=== PATIENT | female | born 2005 | race Two or more races ===

== ENCOUNTER 2024-05-29 09:35 | Emergency (ER) | payer MEDICAID, SELFPAY ==
[2024-05-29 10:12] VITALS: BP 109/72; PULSE 66; RESP 16; TEMP 36.8; O2SAT 100; BMI 26.3
--- NOTE | 2024-05-29 10:52 | PD.EDRME ---
Rapid Medical Screening Exam RME Arrival date/time: 05/29/24 09:35 19-year-old female with right upper quadrant abdominal pain x 3 days. I have greeted and performed a focused initial assessment of this patient. Initial appropriate labs ordered at this time. A comprehensive ED assessment and evaluation of the patient and analysis of all test and completion of medical decision making process will be conducted by additional ED provider. Chief Complaint: Abdominal Pain Time Seen by Provider: 05/29/24 10:25 Vital signs: Vital Signs Temperature 98.2 F 05/29/24 10:12 Pulse Rate 66 05/29/24 10:12 Respiratory Rate 16 05/29/24 10:12 Blood Pressure 109/72 05/29/24 10:12 Pulse Oximetry (%) 100 05/29/24 10:12 Oxygen Delivery Method Room Air 05/29/24 10:12
[2024-05-29 11:14] LABS: Collection Type, Urine Clean Catch
[2024-05-29 11:17] LABS: Basophils % (Auto) 1 % (0-2.5); Eosinophils # (Auto) 0.2 Thou/mm3 (0.0-0.5); Eosinophils % (Auto) 3 % (0-10); Hematocrit 39.4 % (36.0-46.0); Hemoglobin 13.6 g/dL (12.0-16.0); Immature Granulocytes % (Auto) 0 % (0-0); Immature Granulocytes Auto 0.02 Thou/mm3 (0.00-0.00); Lymphocytes # (Auto) 3.3 Thou/mm3 (1.0-4.8); Lymphocytes % (Auto) 42 % (10-50); Mean Corpuscular HGB Conc 34.5 g/dl (31.0-37.0); Mean Corpuscular Hemoglobin 29.4 pg (25.0-35.0); Mean Corpuscular Volume 85 fL (80-100); Monocytes # (Auto) 0.4 Thou/mm3 (0.0-0.8); Monocytes % (Auto) 5 % (0-12); Neutrophils # (Auto) 3.9 Thou/mm3 (1.8-7.7); Neutrophils % (Auto) 50 % (37-80); Nucleated Red Blood Cell % 0 /100 WBC (0); Platelet Count 310 Thou/mm3 (140-440); RDW Standard Deviation 40.1 fL (36.4-46.3); Red Blood Count 4.63 Miln/mm3 (4.00-5.20); White Blood Count 7.8 Thou/mm3 (4.5-11.0)
[2024-05-29 11:41] LABS: Alanine Aminotransferase 17 U/L (10-49); Albumin, Serum 4.7 gm/dL (3.5-5.0); Albumin/Globulin Ratio 1.8 (1.2-2.2); Alkaline Phosphatase 88 U/L (46-116); Anion Gap 7 (7-16); Aspartate Amino Transferase 15 U/L (0-34); BUN/Creatinine Ratio 13 Ratio (12-20); Bilirubin,Total 0.3 mg/dL (0.3-1.2); Blood Urea Nitrogen 8 mg/dL (9-23); Calcium 9.3 mg/dL (8.3-10.6); Calcium (Corrected) 9.3 mg/dL (8.5-10.1); Chloride 104 mMol/L (98-107); Creatinine (Component) 0.6 mg/dL (0.6-1.3); Estimated Creatinine Clearance 132.7 mL/min (>60); Globulin 2.6 gm/dL (2.3-3.5); Glucose 92 mg/dL (74-106); Lipase 35 U/L (12-53); Osmolality,Calculated 273 (275-295); Potassium 3.8 mMol/L (3.4-5.1); Sodium 138 mMol/L (136-145); Total Protein 7.3 gm/dL (5.7-8.2); eGFR > 60 See Note
[2024-05-29 11:42] LABS: Bilirubin,Urine Negative (Negative); Blood,Urine Negative (Negative); Color,Urine Yellow (Lt Yel-Yel); Glucose, Urine Negative (Negative); Ketones,Urine Negative (Negative); Leukocyte Esterase,Urine Positive (Negative); Nitrite,Urine Negative (Negative); Protein,Urine Trace (Neg - Trace); RBC,Urine 5 /hpf (0-3); Specific Gravity,Urine 1.026 (1.001-1.035); Squamous Epithelial Cell,Urine 41 /hpf (0-5); Urobilinogen,Urine Negative mg/dL (0.0-1.0); WBC,Urine 11 /hpf (0-5)
[2024-05-29 11:51] LABS: Clarity,Urine Hazy (Clear/Hazy)
--- NOTE | 2024-05-29 12:06 | XR_ITS ---
Examination: CT abdomen with intravenous contrast CT pelvis with intravenous contrast 2-D coronal reconstructions 2-D sagittal reconstructions Date and time of exam:May 29, 2024 1526 hours INDICATIONS: Onset left lower quadrant abdominal pain and tenderness today. CTDI: vol (mGy) 7.99 DLP: (mGycm) 428 Technique: Multiple axial sections of the abdomen and pelvis have been obtained. 64 slice high-resolution scanner used. 3 mm axial sections have been obtained, post intravenous injection 60 cc [id number] 2-D sagittal, coronal reconstructions obtained. Low dose protocols were performed. One or more of the following dose reduction techniques were used; automated exposure control, adjustment of the mA and/or KV according to patient size, use of iterative reconstruction technique. Findings: No focal liver or splenic lesions No gallstones No pancreatic or adrenal mass Abdominal aorta normal size No renal or ureteral calculi, no hydronephrosis Normal appendix No bowel obstruction or diverticulitis Anteverted uterus Mildly prominent left ovary 3.7 cm Urinary bladder intact Osseous structures intact IMPRESSION: No renal or ureteral calculi, no hydronephrosis Normal appendix No bowel obstruction diverticulitis or free air Mildly prominent left ovary, recommend pelvic sonography follow-up
--- NOTE | 2024-05-29 12:07 | EDNOTE_ITS ---
<Statement entered by Ayde Jasmine MD - 05/29/24 17:06> As co-signing physician, I was present and available for consult prn. I concur with the plan and care as documented by the midlevel provider. ED Abdominal Pain RME/HPI General Chief Complaint: Abdominal Pain Stated complaint: Abdominal pain since last night Time seen by provider: 05/29/24 10:25 Arrival date/time: 05/29/24 09:35 RME / HPI RME / HPI narrative: 19-year-old female patient came in for evaluation regarding left lower quadrant pain. Onset of symptoms since last night as worsening pain to the left lower quadrant, described as dull ache, severity moderate. Patient denies any fever denies any vomiting denies any nausea denies any diarrhea or constipation. Patient also denies any urinary frequency or dysuria. No medications taken prior travel Related Data Previous Rx's ?Medication ?Instructions ?Recorded ibuprofen 600 mg tablet 600 mg PO Q8H PRN pain #30 tabs 05/29/24 Allergies Allergy/AdvReac Type Severity Reaction Status Date / Time No Known Allergies Allergy Verified 03/10/24 15:35 Review of Systems Review of Systems Narrative Review of Systems: Review of system reviewed and within normal limits except mentioned in HPI ED Exam Narrative Physical exam: VITAL SIGNS: Reviewed. GENERAL APPEARANCE: Alert and interactive, follows commands, no acute distress, HEAD AND FACE: Non-traumatic. ENT: PERRL, pink conjunctivitis, eyelid no trauma, Mucous membrane moist. NECK: Supple, nontender, no nuchal rigidity. CHEST: No tenderness, no crepitus, no paradoxical movement, no retractions. LUNGS: Clear, well ventilated, symmetric, no rales, no wheezing, no ronchi, no stridor, good breath sounds bilaterally. HEART: Regular rate, regular rhythm, no murmur, no gallops. ABDOMEN: Soft, positive bowel sounds, nondistended, no guarding, left lower quadrant tenderness, no rebound, no masses, RECTAL: Deferred. GENITAL: Deferred. NEUROLOGICAL: Gross motor function intact sensory function intact, Appropriate for age. MUSCULOSKELETAL: low back nontender, full range of motion. EXTREMITIES: Nontender, full range of motion. SKIN: Color pink, dry, no rash, no lacerations, no abrasions, no contusions. LYMPHATICS: Deferred. Course Quality Measures none Orders Category Date Time Status CT Screening NOW Care 05/29/24 12:[address] abdomen pelvis w con Stat Exams 05/29/24 12:06 Completed CBC Stat Lab 05/29/24 11:01 Completed Comprehensive Metabolic Panel Stat Lab 05/29/24 11:01 Completed HCG Qualitative,Urine Stat Lab 05/29/24 11:00 Completed Lipase Stat Lab 05/29/24 11:01 Completed Urinalysis Stat Lab 05/29/24 11:00 Completed Vital Signs Vital signs: Vital Signs Temperature 98.2 F 05/29/24 10:12 Pulse Rate 66 05/29/24 10:12 Respiratory Rate 16 05/29/24 10:12 Blood Pressure 109/72 05/29/24 10:12 Pulse Oximetry (%) 100 05/29/24 10:12 Oxygen Delivery Method Room Air 05/29/24 10:12 Abdominal Pain MDM [facility] Narrative [facility] Narrative:: 19-year-old female patient came in for evaluation regarding left lower quadrant pain. Onset of symptoms since last night as worsening pain to the left lower quadrant, described as dull ache, severity moderate. Patient denies any fever denies any vomiting denies any nausea denies any diarrhea or constipation. Patient also denies any urinary frequency or dysuria. No medications taken prior to arrival. Patient's workup today all came back unremarkable, urinalysis is contaminated. CT scan of the abdomen/pelvis came back unremarkable. Results discussed with the patient. Prior to discharge patient told me that her abdominal pain is gone Patient data External records reviewed:: None Clinical information provided by:: patient Social determinants that could affect healthcare access:: none Patient has the following chronic illnesses:: None How is presenting disease/condition affected by chronic disease/condition?: no chronic disease Evaluation data The following diagnostics were reviewed and interpreted by me:: lab results and radiology exam(s) Lab and/or radiology exams considered but not ordered:: None Interpretation Summary: See aboveb in MDM Medications / Prescriptions Medications or Prescriptions considered but not ordered:: None Medication administrations:: None Consultations Consultation(s) initiated? (list below): No Diagnosis Differential diagnosis abdominal pain: abdominal pain, calculus of kidney, constipation and endometriosis Most likely diagnosis given after review of the tests above:: Abdominal pain Admission Indicated Admission indicated?: not indicated Admission Request Was there a request for admission?: No Disposition Plan Disposition Plan: Discharge Discharge Attestation Discharge Attestation: The patient was given an opportunity to ask questions and understood the discharge instructions. Discharge instructions specifically effects, indications for sooner follow up or return to the emergency department, and the expected course of current diagnosis. Patient condition: Stable Discharge Plan Plan Patient Disposition: HOME (Self Care) Disposition Comment: Stable Prescriptions/Referrals Prescriptions/Med Rec: New ibuprofen 600 mg tablet 600 mg PO Q8H PRN (Reason: pain) Qty: 30 0RF Referrals: No Primary/Family,Physician [Primary Care Provider] - In 1 week Problem List Clinical Impression: Abdominal pain Patient/Caregiver Discharge Instructions Discharge Activity: activity as tolerated Education Materials: Abdominal Pain Additional Instructions: Thank you for the opportunity for serving you today. You are stable for discharged . You are advised to: Follow-up with your PCP in 1 to 2 days Return to ED for worsening of symptoms Increase oral fluids Take medication as prescribed Print Language: Polish Stand Alone Forms: Loni Award Info., Patient Portal Info Letter EVELYN/ALEXSANDRA Supervising Physician EVELYN/ALEXSANDRA Supervising Physician: MD Kenroy
[2024-05-29 12:09] LABS: HCG Qualitative,Urine Negative
== END 2024-05-29 16:34 | disposition home or self-care (01) ==
PROVIDERS: Nurse Practitioner Primary Care; Emergency Provider Emergency Medicine
DX: R10.32 Left lower quadrant pain (principal)
CPT/HCPCS: 36415; 74177; 80053; 81001; 81025; 83690; 85025; 99285; A4649; Q9967

== ENCOUNTER 2024-10-21 14:14 | Emergency (ER) | payer MEDICAID, SELFPAY ==
[2024-10-21 14:25] VITALS: BP 122/90; PULSE 89; RESP 18; TEMP 36.9; O2SAT 99; BMI 25.7
--- NOTE | 2024-10-21 14:27 | PD.EDABDPN ---
ED Abdominal Pain RME/HPI General Chief Complaint: Back Pain/Injury Stated complaint: BACK PAIN THAT RADIATES TO GROIN Time seen by provider: 10/21/24 14:18 Arrival date/time: 10/21/24 14:14 This is a [id number]-ulr female came in emergency room due to abdominal pain patient's pain started 1 day associated with nausea vomiting pain and sharp and radiating to both lower abdomen denies any constipation diarrhea denies fever denies blood in the stool Related Data Previous Rx's ?Medication ?Instructions ?Recorded ibuprofen 600 mg tablet 600 mg PO Q8H PRN pain #30 tabs 05/29/24 cephalexin 500 mg capsule 500 mg PO QID 10 days #40 caps 10/21/24 ondansetron 4 mg disintegrating 4 mg PO Q8H PRN nausea and 10/21/24 tablet vomiting #20 tabs Allergies Allergy/AdvReac Type Severity Reaction Status Date / Time No Known Allergies Allergy Verified 10/21/24 14:15 Review of Systems Review of Systems Systems Reviewed: All systems reviewed, normal except as documented Constitutional Constitutional: Reports system reviewed and no additional complaints, except as documented, Denies anorexia, Denies body ache(s), Denies chills, Denies daytime sleepiness and Denies difficulty sleeping ENT Ears, Nose, Mouth, and Throat: Denies dysphagia Cardiovascular Cardiovascular: Reports system reviewed and no additional complaints, except as documented, Reports as per HPI, Denies chest pain and Denies dyspnea Respiratory Respiratory: Reports system reviewed and no additional complaints, except as documented, Reports as per HPI, Denies chest congestion, Denies cough and Denies dyspnea Gastrointestinal Gastrointestinal: Reports system reviewed and no additional complaints, except as documented, Reports as per HPI, Reports abdominal pain, Denies belching, Denies bloating, Denies change in bowel habits, Denies change in stool character, Denies coffee ground emesis, Denies constipation, Denies cramping, Denies diarrhea, Denies dyspepsia, Denies dysphagia, Denies early satiety, Denies excessive flatus, Denies heartburn, Reports nausea and Reports vomiting Genitourinary Genitourinary: Reports system reviewed and no additional complaints, except as documented, Reports as per HPI, Denies abnormal vaginal bleeding, Denies difficulty voiding, Denies dysuria and Denies hematuria Musculoskeletal Musculoskeletal: Reports system reviewed and no additional complaints, except as documented and Reports as per HPI Neurologic Neurologic: Reports system reviewed and no additional complaints, except as documented Course Quality Measures none Orders Category Date Time Status CT abdomen pelvis wo con Stat Exams 10/21/24 16:11 Completed CBC Stat Lab 10/21/24 14:45 Completed Comprehensive Metabolic Panel Stat Lab 10/21/24 14:45 Completed HCG Qualitative,Urine Stat Lab 10/21/24 14:41 Completed Lipase Stat Lab 10/21/24 14:45 Completed Urinalysis Stat Lab 10/21/24 14:41 Completed Vital Signs Vital signs: Vital Signs Temperature 98.5 F 10/21/24 14:25 Pulse Rate 89 10/21/24 14:25 Respiratory Rate 18 10/21/24 14:25 Blood Pressure 122/90 H 10/21/24 14:25 Pulse Oximetry (%) 99 10/21/24 14:25 Oxygen Delivery Method Room Air 10/21/24 14:25 Oxygen saturation 99% in room air WNL Abdominal Pain MDM MDM Narrative MDM Narrative:: This is a [id number]-abh female came in emergency room due to abdominal pain patient's pain started 1 day associated with nausea vomiting pain and sharp and radiating to both lower abdomen denies any constipation diarrhea denies fever denies blood in the stool Physicial exam showed normal vital signs patient is not tacycardic not tacypneic blood pressure stable afebrile not hypoxic patient abdominal exam is benign nonsurgical no guarding no rebound no rigidity negative psoas negative obturator negative Rovsing's negative McBurney's negative McBurney's, negative CVA tenderness no bladder distention or tenderness test showed CBC showed no leukocytosis no anemia CMP showed no electrolyte imbalance kidney and liver function is normal lipase is normal urinalysis showed WBC in the urine positive nitrates suggestive of urinary tract infection no signs and symptoms of dehydration no signs and symptoms of sepsis based on my physical exam patient symtoms suggestive of urinary tract infection treatement cephalexin for 10 days Zofran as needed for nausea vomiting increase water intake patient was disharged with comforatble conditionwith stable condition and pain fee. Walking stable Patient verbalized no further complain with the proposed management plan including the need to follow up with his/her primary care physician and and any specialist fif applicable. Discussed patient for any urgent condition or worsening sx He she needed to go to Emergency room of call 911 Patient is acknowledge the responsibility to follow up as instructed and to monitor his/her symptoms For any persistnce of the symtoms for more than 3-5 days retrun precaution advised Discussed the result of thetest and was given printed dsicahrge instruction Patient data External records reviewed:: [facility] previous records Clinical information provided by:: patient Social determinants that could affect healthcare access:: none Patient has the following chronic illnesses:: None How is presenting disease/condition affected by chronic disease/condition?: no chronic disease Evaluation data The following diagnostics were reviewed and interpreted by me:: lab results and radiology exam(s) Lab and/or radiology exams considered but not ordered:: Reviewed Interpretation Summary: Normal Medications / Prescriptions Medications or Prescriptions considered but not ordered:: Given Medication administrations:: Given Consultations Consultation(s) initiated? (list below): No Diagnosis Differential diagnosis abdominal pain: abdominal pain, acute appendicitis, constipation, diverticulitis and gastroenteritis Most likely diagnosis given after review of the tests above:: Urinary tract infection Admission Indicated Admission indicated?: not indicated Explain why admission is indicated or not indicated:: Not indicated Admission Request Was there a request for admission?: No Admission Attestation Admission request attestation: Not indicated Disposition Plan Disposition Plan: Discharge Discharge Attestation Discharge Attestation: The patient and all family members were given an opportunity to ask questions and understood the discharge instructions. Discharge instructions specifically effects, indications for sooner follow up or return to the emergency department, and the expected course of current diagnosis. Patient condition: Stable Discharge Plan Plan Patient Disposition: HOME (Self Care) Patient condition on transfer: Stable Prescriptions/Referrals Prescriptions/Med Rec: New cephalexin 500 mg capsule 500 mg PO QID 10 Days Qty: 40 0RF ondansetron 4 mg tablet,disintegrating 4 mg PO Q8H PRN (Reason: nausea and vomiting) Qty: 20 0RF No Action ibuprofen 600 mg tablet 600 mg PO Q8H PRN (Reason: pain) Qty: 30 0RF Referrals: Kolton Delacruz MD [Primary Care Provider] - In 1 week Problem List Clinical Impression: Abdominal pain, Urinary tract infection Patient/Caregiver Discharge Instructions Diet Instructions: Increase water intake Education Materials: Abdominal Pain, Understanding Urinary Tract ... Print Language: Sinhala Stand Alone Forms: Loni Award Info., Patient Portal Info Letter PA/JAPANESE INTERPRETER Supervising Physician PA/JAPANESE INTERPRETER Supervising Physician: dr keys
[2024-10-21 14:59] LABS: Collection Type, Urine Clean Catch
[2024-10-21 15:06] LABS: Basophils # (Auto) 0.1 Thou/mm3 (0.0-0.2); Basophils % (Auto) 1 % (0-2.5); Eosinophils # (Auto) 0.1 Thou/mm3 (0.0-0.5); Eosinophils % (Auto) 2 % (0-10); Hematocrit 38.7 % (36.0-46.0); Hemoglobin 13.6 g/dL (12.0-16.0); Immature Granulocytes % (Auto) 0 % (0-0); Immature Granulocytes Auto 0.03 Thou/mm3 (0.00-0.00); Lymphocytes # (Auto) 2.6 Thou/mm3 (1.0-4.8); Lymphocytes % (Auto) 27 % (10-50); Mean Corpuscular HGB Conc 35.1 g/dl (31.0-37.0); Mean Corpuscular Hemoglobin 28.8 pg (25.0-35.0); Mean Corpuscular Volume 82 fL (80-100); Monocytes # (Auto) 0.6 Thou/mm3 (0.0-0.8); Monocytes % (Auto) 7 % (0-12); Neutrophils % (Auto) 64 % (37-80); Nucleated Red Blood Cell % 0 /100 WBC (0); Platelet Count 319 Thou/mm3 (140-440); Red Blood Count 4.72 Miln/mm3 (4.00-5.20); White Blood Count 9.4 Thou/mm3 (4.5-11.0)
[2024-10-21 15:07] LABS: HCG Qualitative,Urine Negative
[2024-10-21 15:11] LABS: Bacteria,Urine Rare; Bilirubin,Urine Negative (Negative); Blood,Urine Negative (Negative); Color,Urine Yellow (Lt Yel-Yel); Glucose, Urine Negative (Negative); Ketones,Urine Negative (Negative); Leukocyte Esterase,Urine Positive (Negative); Nitrite,Urine Negative (Negative); Protein,Urine Trace (Neg - Trace); RBC,Urine 4 /hpf (0-3); Specific Gravity,Urine 1.035 (1.001-1.035); Squamous Epithelial Cell,Urine 50 /hpf (0-5); Urobilinogen,Urine Negative mg/dL (0.0-1.0); WBC,Urine 18 /hpf (0-5)
[2024-10-21 15:38] LABS: Alanine Aminotransferase 9 U/L (10-49); Albumin, Serum 4.6 gm/dL (3.5-5.0); Albumin/Globulin Ratio 1.7 (1.2-2.2); Alkaline Phosphatase 93 U/L (46-116); Anion Gap 10 (7-16); Aspartate Amino Transferase 14 U/L (0-34); BUN/Creatinine Ratio 13 Ratio (12-20); Bilirubin,Total 0.4 mg/dL (0.3-1.2); Blood Urea Nitrogen 10 mg/dL (9-23); Calcium 8.7 mg/dL (8.3-10.6); Calcium (Corrected) 8.7 mg/dL (8.5-10.1); Carbon Dioxide 25.1 mMol/L (20.0-31.0); Chloride 103 mMol/L (98-107); Creatinine (Component) 0.8 mg/dL (0.6-1.3); Estimated Creatinine Clearance 102.3 mL/min (>60); Globulin 2.7 gm/dL (2.3-3.5); Glucose 115 mg/dL (74-106); Lipase 37 U/L (12-53); Osmolality,Calculated 275 (275-295); Sodium 138 mMol/L (136-145); Total Protein 7.3 gm/dL (5.7-8.2); eGFR > 60 See Note
--- NOTE | 2024-10-21 16:11 | XR_ITS ---
Examination: CT abdomen and pelvis without contrast. Coronal 3-D reconstructions. Sagittal 2-D reconstructions. Date and time of exam:October 21, 2024 1722 hours INDICATIONS: Lower abdominal pain with nausea vomiting beginning one week ago CTDI: vol (mGy): 7.78 DLP: (mGycm): 429 Technique: Axial images of the abdomen have been obtained, 3 mm slice thickness Intravenous contrast material has not been administered. Low dose protocols were performed. One or more of the following dose reduction techniques were used; automated exposure control, adjustment of the mA and/or KV according to patient size, use of iterative reconstruction technique. Findings: No focal liver or splenic lesion Contracted gallbladder No pancreatic or adrenal mass No renal or ureteral calculi and No hydronephrosis Aorta normal size 10 mm fat-containing umbilical hernia Normal appendix No bowel obstruction No diverticulitis Left ovary 4.4 cm Anteverted uterus Contracted urinary bladder Osseous structures are intact IMPRESSION: No renal or ureteral calculi, no hydronephrosis Normal appendix No bowel obstruction diverticulitis or free air Recommend pelvic sonography to assess mildly prominent left ovary
[2024-10-21 16:36] VITALS: BP 111/75; PULSE 77; RESP 17; TEMP 36.8; O2SAT 99
[2024-10-21 16:37] LABS: Clarity,Urine Hazy (Clear/Hazy)
[2024-10-21 18:12] VITALS: BP 112/78; PULSE 72; RESP 16; TEMP 37; O2SAT 99
== END 2024-10-21 18:15 | disposition home or self-care (01) ==
PROVIDERS: Nurse Practitioner Family; Emergency Provider Emergency Medicine; PCP Family Medicine
DX: N39.0 Urinary tract infection, site not specified (principal)
CPT/HCPCS: 36415; 74176; 80053; 81001; 81025; 83690; 85025; 99284

== ENCOUNTER 2024-12-10 16:20 | Emergency (ER) | payer MEDICAID, SELFPAY ==
[2024-12-10 17:33] VITALS: BP 117/74; PULSE 74; RESP 20; TEMP 36.7; O2SAT 99
--- NOTE | 2024-12-10 17:38 | EDNOTE_ITS ---
ED Female Urogenital RME/HPI General Chief complaint: Urogenital-Female Stated complaint: WHITE VAG -DISCHARGE Time Seen by Provider: 12/10/24 17:08 Source: patient Arrival date/time: 12/10/24 16:20 This is a 19-year-old female who presents to the emergency department with complaints of curdy- white discharge for 2 days. Reports Intense itching. History of candidal vaginosis. Denies any dysuria, hematuria no pelvic pain. Mode of arrival: ambulatory Related Data Previous Rx's ?Medication ?Instructions ?Recorded ibuprofen 600 mg tablet 600 mg PO Q8H PRN pain #30 t abs 05/29/24 ondansetron 4 mg disintegrating 4 mg PO Q8H PRN nausea and 10/21/24 tablet vomiting #20 tabs clotrimazole 1 % vaginal cream 1 applic .Route .QHS 7 days #45 12/10/24 (Clotrimazole-7) grams Allergies Allergy/AdvReac Type Severity Reaction Status Date / Time No Known Allergies Allergy Verified 10/21/24 14:15 Review of Systems Review of Systems Systems Reviewed: All systems reviewed, normal except as documented Narrative Review of Systems: Gen: No fever, no chills, no weight loss EYES: No discharge, no visual changes, no pain HEENT: No ear pain, no congestion, no sore throat PULM: No shortness of breath, no cough, no congestion CV: No chest pain, no dyspnea on exertion, no palpitations GI: No nausea, no vomiting, no diarrhea, no pain, no constipation : No frequency, no urgency,? no dysuria, +vag dc Musc/skel: No joint pain, no back pain Skin: No rash? ED Exam Narrative Physical exam: General: Sittiing in Exam table in no acute distress, answering questions appropriately HENT: normocephalic, atraumatic, EOMI, PERRLA, moist mucous membranes Chest: chest wall is nontender Cardiac: regular rate and rhythm, normal S1 and S2, no murmurs, rubs, or gallops, capillary refill ?2 seconds Pulmonary: clear to auscultation bilaterally, no wheezing, crackles, or rhonchi Abdominal: active bowel sounds, soft, nontender, nondistended Neuro: A&OX3, CN II-XII intact, sensation grossly intact bilaterally in UE and LE. Skin: no rashes, no ecchymosis Ext: no lower extremity edema Course Quality Measures none Vital Signs Vital signs: Vital Signs Temperature 98.0 F 12/10/24 17:33 Pulse Rate 74 12/10/24 17:33 Respiratory Rate 20 12/10/24 17:33 Blood Pressure 117/74 12/10/24 17:33 Pulse Oximetry (%) 99 12/10/24 17:33 Oxygen Delivery Method Room Air 12/10/24 17:33 Urogenital - Female MDM Narrative MDM Narrative:: 19-year-old female reports 30 white discharge. No other symptoms will treat with clotrimazole. Advised to follow up with PCP if no improvement may need Nwu- swab outpatient. Patient data External records reviewed:: [facility] previous records Clinical information provided by:: patient Social determinants that could affect healthcare access:: none Patient has the following chronic illnesses:: no How is presenting disease/condition affected by chronic disease/condition?: no chronic disease Evaluation data The following diagnostics were reviewed and interpreted by me:: other (specify) Lab and/or radiology exams considered but not ordered:: no Interpretation Summary: n/a Medications / Prescriptions Medications or Prescriptions considered but not ordered:: no Medication administrations:: no Consultations Consultation(s) initiated? (list below): No Diagnosis Urogenital Female Differential Diagnosis: bacterial vaginosis, vaginitis and cystitis Most likely diagnosis given after review of the tests above:: Most likely Heron vaginitis Admission Indicated Admission indicated?: not indicated Admission Request Was there a request for admission?: No Disposition Plan Disposition Plan: Discharge Discharge Attestation Discharge Attestation: The patient and all family members were given an opportunity to ask questions and understood the discharge instructions. Discharge instructions specifically effects, indications for sooner follow up or return to the emergency department, and the expected course of current diagnosis. Patient condition: Stable Discharge Plan Plan Patient Disposition: HOME (Self Care) Prescriptions/Referrals Prescriptions/Med Rec: New clotrimazole [Clotrimazole-7] 1 % cream 1 applic .Route .QHS 7 Days Qty: 45 0RF Rx Instructions: 1 application per vagina at at bedtime for 7 days No Action ibuprofen 600 mg tablet 600 mg PO Q8H PRN (Reason: pain) Qty: 30 0RF ondansetron 4 mg tablet,disintegrating 4 mg PO Q8H PRN (Reason: nausea and vomiting) Qty: 20 0RF Problem List Clinical Impression: Heron vaginitis Patient/Caregiver Discharge Instructions Discharge Activity: activity as tolerated Education Materials: ED HERON VAGINITIS Additional Instructions: Please use medication for yeast infection. Follow-up with your primary doctor in 48 hours for follow-up care. Return to the emergency department this any worsening symptoms continue condition. Print Language: Namibian Stand Alone Forms: Loni Award Info., Patient Portal Info Letter PA/PUBLIC HEALTH TECHNOLOGIST Supervising Physician PA/PUBLIC HEALTH TECHNOLOGIST Supervising Physician: Dr. Brink
== END 2024-12-10 17:51 | disposition home or self-care (01) ==
LOC: SERX 17:57
PROVIDERS: Emergency Provider Emergency Medicine
DX: B37.31 Acute candidiasis of vulva and vagina (principal)
CPT/HCPCS: 99283

== ENCOUNTER 2025-03-30 12:27 | Emergency (ER) | payer MEDICAID, SELFPAY ==
[2025-03-30 12:30] VITALS: BMI 27.4
--- NOTE | 2025-03-30 12:52 | XR_ITS ---
Examination: Pelvic ultrasound, transabdominal, complete Technique: Transabdominal ultrasound of the pelvis performed using grayscale imaging Date and time of exam: March 30, 2025, 1315 hours INDICATIONS: Pelvic pain and vaginal bleeding beginning March 06, 2025. FINDINGS: Uterus 7.1 cm endometrial stripe 1.8 cm No uterine mass or intrauterine gestation. Right ovary 2.9 cm arterial flow Left ovary 3.2 cm arterial flow IMPRESSION: Negative pelvic sonogram
--- NOTE | 2025-03-30 12:53 | PD.EDRME ---
Rapid Medical Screening Exam RME Arrival date/time: 03/30/25 12:27 19-year-old female with no known medical history presents to the emergency room with a chief complaint of vaginal bleeding, headache, abdominal cramping x 1 month I have greeted and performed a focused initial assessment of this patient. A comprehensive ED assessment and evaluation of the patient, analysis of all test results, and completion of the medical decision making process will be conducted by additional ED providers. Chief Complaint: General Adult/Misc Complain Time Seen by Provider: 03/30/25 12:34 Vital signs reviewed by provider: No Exam: Clear bilateral lung sounds. Strong and regular rhythm S1 and S2 noted Bilateral lower abdominal cramping with palpation Clinical Impression: Vaginal bleeding/electrolyte imbalance/ovarian cyst
[2025-03-30 12:57] VITALS: BP 108/78; PULSE 89; RESP 18; TEMP 36.6; O2SAT 99
[2025-03-30] MEDS: ACETAMINOPHEN 325 MG TABLET 650 MG PO (13:02)
[2025-03-30 13:17] LABS: Collection Type, Urine Clean Catch
[2025-03-30 13:32] LABS: Bilirubin,Urine Negative (Negative); Blood,Urine 2+ (Negative); Color,Urine Yellow (Lt Yel-Yel); Glucose, Urine Negative (Negative); Ketones,Urine Negative (Negative); Leukocyte Esterase,Urine Positive (Negative); Nitrite,Urine Negative (Negative); PH,Urine 6.0 (5.0-7.0); Protein,Urine Trace (Neg - Trace); RBC,Urine 4 /hpf (0-3); Specific Gravity,Urine 1.033 (1.001-1.035); Squamous Epithelial Cell,Urine 10 /hpf (0-5); Urobilinogen,Urine Negative mg/dL (0.0-1.0); WBC,Urine 12 /hpf (0-5)
[2025-03-30 13:55] LABS: Clarity,Urine Hazy (Clear/Hazy)
[2025-03-30 14:06] LABS: HCG Qualitative,Urine Negative
[2025-03-30 14:07] LABS: Basophils # (Auto) 0.0 Thou/mm3 (0.0-0.2); Basophils % (Auto) 1 % (0-2.5); Eosinophils # (Auto) 0.2 Thou/mm3 (0.0-0.5); Eosinophils % (Auto) 2 % (0-10); Hematocrit 40.9 % (36.0-46.0); Hemoglobin 13.8 g/dL (12.0-16.0); Immature Granulocytes Auto 0.02 Thou/mm3 (0.00-0.00); Lymphocytes # (Auto) 2.8 Thou/mm3 (1.0-4.8); Lymphocytes % (Auto) 33 % (10-50); Mean Corpuscular HGB Conc 33.7 g/dl (31.0-37.0); Mean Corpuscular Hemoglobin 28.7 pg (25.0-35.0); Mean Corpuscular Volume 85 fL (80-100); Monocytes # (Auto) 0.5 Thou/mm3 (0.0-0.8); Monocytes % (Auto) 6 % (0-12); Neutrophils # (Auto) 5.0 Thou/mm3 (1.8-7.7); Neutrophils % (Auto) 59 % (37-80); Nucleated Red Blood Cell # 0.00 Thou/mm3 (0.00-0.00); Nucleated Red Blood Cell % 0 /100 WBC (0); Platelet Count 332 Thou/mm3 (140-440); RDW Standard Deviation 41.1 fL (36.4-46.3); Red Blood Count 4.81 Miln/mm3 (4.00-5.20); White Blood Count 8.6 Thou/mm3 (4.5-11.0)
[2025-03-30 14:25] LABS: Alanine Aminotransferase 11 U/L (10-49); Albumin, Serum 4.8 gm/dL (3.5-5.0); Albumin/Globulin Ratio 2.3 (1.2-2.2); Alkaline Phosphatase 93 U/L (46-116); Anion Gap 8 (7-16); Aspartate Amino Transferase 18 U/L (0-34); BUN/Creatinine Ratio 12 Ratio (12-20); Bilirubin,Total 0.4 mg/dL (0.3-1.2); Blood Urea Nitrogen 7 mg/dL (9-23); Calcium 9.2 mg/dL (8.3-10.6); Calcium (Corrected) 9.2 mg/dL (8.5-10.1); Carbon Dioxide 28.1 mMol/L (20.0-31.0); Chloride 105 mMol/L (98-107); Creatinine (Component) 0.6 mg/dL (0.6-1.3); Estimated Creatinine Clearance 146.0 mL/min (>60); Globulin 2.1 gm/dL (2.3-3.5); Glucose 98 mg/dL (74-106); Lipase 34 U/L (12-53); Osmolality,Calculated 279 (275-295); Potassium 4.2 mMol/L (3.4-5.1); Sodium 141 mMol/L (136-145); Total Protein 6.9 gm/dL (5.7-8.2); eGFR > 60 See Note
== END 2025-03-30 16:01 | disposition left against medical advice (07) ==
PROVIDERS: Nurse Practitioner Family; Emergency Provider Family Medicine; PCP Family Medicine
DX: Z53.21 Procedure and treatment not carried out due to patient leaving prior to being seen by health care provider (principal)
CPT/HCPCS: 36415; 76856; 80053; 81001; 81025; 83690; 85025; 87086; 99283; A9270

== ENCOUNTER 2025-04-17 17:29 | Emergency (ER) | payer MEDICAID, SELFPAY ==
[2025-04-17 17:30] VITALS: BMI 29.9
[2025-04-17 17:42] VITALS: BP 115/77; PULSE 93; RESP 20; TEMP 36.9; O2SAT 98
--- NOTE | 2025-04-17 17:56 | PD.EDVAGBL ---
ED OB Contraction Preg RMI/HPI General Chief complaint: Vaginal Bleeding Stated complaint: VAG BLEEDING X1 MONTH, WORSE NOW Time Seen by Provider: 04/17/25 17:55 Arrival date/time: 04/17/25 17:29 RME / HPI RME / HPI Narrative: 19-year-old female with past medical history of an who is complaining of vaginal bleeding for the past 6 weeks daily who saw Dr. Hammer and [facility] clinic 2 weeks ago and was prescribed some contraceptive medication and was told to wait and start taking it 5 days ago which she did and initially at onset patient bleeding had resolved nearly for 3 days however it returned with some small blood clots and pads for the past 2 days despite still being compliant with her medication. Patient was also given a cream as she had some discharge which did not seem to help her discharge. Patient also complaining of associated dysuria, pelvic cramping. Patient denies pain with intercourse, nausea, vomiting, diarrhea, fever. Related Data Previous Rx's ?Medication ?Instructions ?Recorded ibuprofen 600 mg tablet 600 mg PO Q8H PRN pain #30 tabs 05/29/24 ondansetron 4 mg disintegrating 4 mg PO Q8H PRN nausea and 10/21/24 tablet vomiting #20 tabs Allergies Allergy/AdvReac Type Severity Reaction Status Date / Time No Known Allergies Allergy Verified 04/17/25 17:30 ED Exam Narrative Physical exam: Constitutional: Patient alert and oriented. Well appearing. No acute distress. Not toxic appearing. Head: Normocephalic, atraumatic. Eyes: Periorbital regions bilaterally normal to inspection. Conjunctiva clear bilaterally. Sclera anicteric bilaterally. Pupils equal, round, reactive to light bilaterally. Extraocular movements intact bilaterally. Mouth/Throat: Mucous membranes moist. No stridor or muffled voice. No trismus. Handling secretions without difficulty. Airway widely patent. Neck: Supple. Trachea midline. No JVD. No nuchal rigidity. Normal range of motion. Respiratory: Normal effort. No accessory muscle use or respiratory distress. Lungs clear to auscultation bilaterally without rhonchi, wheezes, or crackles. Cardiovascular: RRR. Normal S1/S2. No murmurs or rubs. Radial pulses intact bilaterally. Abdomen: Soft. Non-distended. Non-tender throughout. No pulsatile mass. No guarding or rebound. Negative Rodriguez?s sign. Negative McBurney?s point tenderness. Negative Rovsing?s. Back: No midline tenderness or step-offs. No CVA tenderness to palpation bilaterally. Upper Extremities: No gross deformities. Lower Extremities: No gross deformities. No edema or calf tenderness. Neuro: Speech normal. No gross motor or sensory deficits to upper or lower extremities bilaterally. GCS 15. CN II?XII grossly intact. Skin: Warm, dry, normal color. Psych: Normal affect. Cooperative. Normal insight. : Celsa [employer] meat loiner was present, minimal vaginal pooling noted in vaginal fornix however no cervical motion tenderness no blood clots no abnormal vaginal discharge. No adnexal masses or tenderness to palpation bilaterally. Course Quality Measures none Orders Category Date Time Status CBC Stat Lab 04/17/25 18:12 Completed CMP [Comprehensive Metabolic Panel] Stat Lab 04/17/25 18:12 Completed HCG,Qualitative Serum Stat Lab 04/17/25 18:12 Completed Lipase Stat Lab 04/17/25 18:12 Completed PT [Prothrombin Time with INR] Stat Lab 04/17/25 18:12 Completed Partial Thromboplastin Time Stat Lab 04/17/25 18:12 Completed Urinalysis, C/S if Indicated Stat Lab 04/17/25 18:30 Completed Vital Signs Vital signs: Vital Signs Temperature 98.5 F 04/17/25 17:42 Pulse Rate 93 04/17/25 17:42 Respiratory Rate 20 04/17/25 17:42 Blood Pressure 115/77 04/17/25 17:42 Pulse Oximetry (%) 98 04/17/25 17:42 Oxygen Delivery Method Room Air 04/17/25 17:42 Vaginal Bleeding MDM Narrative MDM Narrative: MDM Suspect: abnormal vs dysfunctional uterine bleeding Prior pelvic ultrasound on 03/30 demonstrates no acute abnormality Patient's hemoglobin has dropped 1.5 points for the past 2 weeks however patient is tolerating this drop in hemoglobin well Doubt tubo-ovarian abscess, salpingitis, PID, or endometritis given no fever, discharge, dyspareunia, dyschezia, uterine tenderness, or high-risk sexual behavior. STD considered but less likely as no abnormal vaginal discharge appreciated on exam UA without signs of infection MULTIFOCAL LENS INSPECTOR consulted and he advised patient to double her OCPs for 5 days and follow-up with her MULTIFOCAL LENS INSPECTOR this coming week Serial abdominal exams remain benign without peritonitis and patient remains hemodynamically stable here in the ER. Patient tolerating oral intake, ambulating without difficulty, and appears clinically well. Advised strict return precautions. Patient data External records reviewed:: [facility] previous records Clinical information provided by:: patient Social determinants that could affect healthcare access:: none Patient has the following chronic illnesses:: Abnormal uterine bleeding How is presenting disease/condition affected by chronic disease/condition?: caused by Evaluation data The following diagnostics were reviewed and interpreted by me:: lab results and radiology exam(s) Lab and/or radiology exams considered but not ordered:: Additional Labs and radiology considered, but not ordered as they were not clinically indicated at this time. Interpretation Summary: Patient's hemoglobin is 12.3 today however on 03/30 it was 13.8 so hemoglobin has dropped 1.5 points remainder of the lab work without severe metabolic or electrolyte abnormality. hCG qualitative is negative. UA is concerning for hematuria with 770 RBCs however no signs of infection Prior ultrasound reviewed which was unremarkable Medications / Prescriptions Medications or Prescriptions considered but not ordered:: I considered prescription management (both outpatient prescriptions AND drug treatment in the ER) and decided that this was necessary and was prescribed as charted. Medication administrations:: I considered prescription management (both outpatient prescriptions AND drug treatment in the ER) and decided that this was necessary and was prescribed as charted. Consultations Consultation(s) initiated? (list below): Yes Consultation #1 (Physician, Specialty, Details): MULTIFOC[employer] L[employer] INSPECTOR, Dr. Emery, he advised that she double her pills for the next 5 days and follow-up with her MULTIFOCAL LENS INSPECTOR in the clinic this week and patient safe for discharge Time: 21:02 Diagnosis Vaginal Bleeding Differential Diagnosis: missed , threatened and dysfunctional uterine bleeding Most likely diagnosis given after review of the tests above:: As noted Admission Indicated Admission indicated?: not indicated Admission Request Was there a request for admission?: No Disposition Plan Disposition Plan: Discharge Discharge Attestation Discharge Attestation: The patient and all family members were given an opportunity to ask questions and understood the discharge instructions. Discharge instructions specifically effects, indications for sooner follow up or return to the emergency department, and the expected course of current diagnosis. Patient condition: Stable Discharge Plan Plan Patient Disposition: HOME (Self Care) Patient condition on transfer: Stable Prescriptions/Referrals Prescriptions/Med Rec: No Action ibuprofen 600 mg tablet 600 mg PO Q8H PRN (Reason: pain) Qty: 30 0RF ondansetron 4 mg tablet,disintegrating 4 mg PO Q8H PRN (Reason: nausea and vomiting) Qty: 20 0RF Referrals: No Primary/Family,Physician [Primary Care Provider] - In 1 week Problem List Clinical Impression: Abnormal uterine bleeding Patient/Caregiver Discharge Instructions Education Materials: ED Dysfunctional Uterine Bleeding Additional Instructions: Follow up with your MULTIFOCAL LENS INSPECTOR medical doctor within 24 hours. Return to the Emergency Room immediately for any new, worsening, continuing symptoms or any concerns at all. Return to the Emergency Room within 24 hours if you are unable to follow up with your MULTIFOCAL LENS INSPECTOR medical doctor within 24 hours. Please take 2 of your oral contraceptive pills instead of 1 for the next 5 days. Follow-up with Dr. Hammer your MULTIFOCAL LENS INSPECTOR soon as possible. Print Language: Prydeinig Stand Alone Forms: Loni Award Info., Patient Portal Info Letter PA/IRRIGATION ENGINEER Supervising Physician PA/IRRIGATION ENGINEER Supervising Physician: Dr. Hair
[2025-04-17 18:34] LABS: Collection Type, Urine Voided
[2025-04-17 18:39] LABS: Bilirubin,Urine Negative (Negative); Blood,Urine 3+ (Negative); Clarity,Urine Turbid (Clear/Hazy); Color,Urine Colorless (Lt Yel-Yel); Culture Indicated,Urine Not Indicated; Glucose, Urine Negative (Negative); Ketones,Urine Negative (Negative); Leukocyte Esterase,Urine Negative (Negative); Nitrite,Urine Negative (Negative); PH,Urine 8.0 (5.0-7.0); Protein,Urine 1+ (Neg - Trace); RBC,Urine 770 /hpf (0-3); Specific Gravity,Urine 1.021 (1.001-1.035); Squamous Epithelial Cell,Urine 5 /hpf (0-5); Urobilinogen,Urine Negative mg/dL (0.0-1.0); WBC,Urine 4 /hpf (0-5)
[2025-04-17 18:49] LABS: INR 1.0 (0.9-1.3); Partial Thromboplastin Time 31.9 Seconds (22.0-36.0); Prothrombin Time 10.3 Seconds (9.0-12.2)
[2025-04-17 18:50] LABS: HCG,Qualitative Serum Negative
[2025-04-17 18:54] LABS: Alanine Aminotransferase 9 U/L (10-49); Albumin, Serum 4.5 gm/dL (3.5-5.0); Albumin/Globulin Ratio 1.9 (1.2-2.2); Alkaline Phosphatase 96 U/L (46-116); Anion Gap 9 (7-16); Aspartate Amino Transferase 15 U/L (0-34); BUN/Creatinine Ratio 9 Ratio (12-20); Bilirubin,Total 0.2 mg/dL (0.3-1.2); Blood Urea Nitrogen 7 mg/dL (9-23); Calcium 9.4 mg/dL (8.3-10.6); Calcium (Corrected) 9.4 mg/dL (8.5-10.1); Carbon Dioxide 25.5 mMol/L (20.0-31.0); Chloride 108 mMol/L (98-107); Creatinine (Component) 0.8 mg/dL (0.6-1.3); Estimated Creatinine Clearance 97.5 mL/min (>60); Globulin 2.4 gm/dL (2.3-3.5); Glucose 98 mg/dL (74-106); Lipase 38 U/L (12-53); Osmolality,Calculated 281 (275-295); Potassium 4.2 mMol/L (3.4-5.1); Sodium 142 mMol/L (136-145); Total Protein 6.9 gm/dL (5.7-8.2); eGFR > 60 See Note
[2025-04-17 19:29] LABS: Basophils # (Auto) 0.1 Thou/mm3 (0.0-0.2); Basophils % (Auto) 1 % (0-2.5); Eosinophils # (Auto) 0.3 Thou/mm3 (0.0-0.5); Eosinophils % (Auto) 4 % (0-10); Hematocrit 37.3 % (36.0-46.0); Hemoglobin 12.3 g/dL (12.0-16.0); Immature Granulocytes Auto 0.02 Thou/mm3 (0.00-0.00); Lymphocytes # (Auto) 3.3 Thou/mm3 (1.0-4.8); Lymphocytes % (Auto) 41 % (10-50); Mean Corpuscular HGB Conc 33.0 g/dl (31.0-37.0); Mean Corpuscular Hemoglobin 28.3 pg (25.0-35.0); Mean Corpuscular Volume 86 fL (80-100); Monocytes # (Auto) 0.4 Thou/mm3 (0.0-0.8); Monocytes % (Auto) 5 % (0-12); Neutrophils # (Auto) 4.0 Thou/mm3 (1.8-7.7); Neutrophils % (Auto) 49 % (37-80); Nucleated Red Blood Cell # 0.00 Thou/mm3 (0.00-0.00); Nucleated Red Blood Cell % 0 /100 WBC (0); Platelet Count 346 Thou/mm3 (140-440); RDW Standard Deviation 42.1 fL (36.4-46.3); Red Blood Count 4.35 Miln/mm3 (4.00-5.20); White Blood Count 8.1 Thou/mm3 (4.5-11.0)
[2025-04-17 21:54] VITALS: RESP 18
== END 2025-04-17 21:54 | disposition home or self-care (01) ==
PROVIDERS: Physician Assistant; Emergency Provider Family Medicine
DX: N93.9 Abnormal uterine and vaginal bleeding, unspecified (principal)
CPT/HCPCS: 36415; 80053; 81001; 83690; 84703; 85025; 85610; 85730; 99282

== ENCOUNTER 2025-04-18 22:38 | Emergency (ER) | payer MEDICAID, SELFPAY ==
[2025-04-18 23:25] VITALS: BP 107/66; PULSE 67; RESP 20; TEMP 36.4; O2SAT 98
--- NOTE | 2025-04-18 23:36 | PD.EDRME ---
Rapid Medical Screening Exam RME Arrival date/time: 04/18/25 22:38 This is a case of 19-year-old female with no medical history came in in the emergency room due to persistent headache abdominal pain and vaginal bleeding patient was here yesterday thorough workup was performed and was discharged with dysfunctional uterine bleeding due to worsening of the symptoms thus patient decided to sought consult here in the emergency room Chief Complaint: General Adult/Misc Complain Time Seen by Provider: 04/18/25 22:49 Vital signs: Vital Signs Temperature 97.5 F 04/18/25 23:25 Pulse Rate 67 04/18/25 23:25 Respiratory Rate 20 04/18/25 23:25 Blood Pressure 107/66 04/18/25 23:25 Pulse Oximetry (%) 98 04/18/25 23:25 Oxygen Delivery Method Room Air 04/18/25 23:25 Exam: Abdominal exam is benign nonsurgical no guarding no rebound no rigidity mild tenderness suprapubic area excellent skin turgor Clinical Impression: Abdominal pain headache abnormal vaginal bleeding
[2025-04-18 23:57] LABS: Hematocrit 38.8 % (36.0-46.0); Hemoglobin 13.0 g/dL (12.0-16.0)
--- NOTE | 2025-04-19 00:40 | EDNOTE_ITS ---
ED OB Contraction Preg RMI/HPI General Chief complaint: Vaginal Bleeding Stated complaint: ABD PAIN,HEADACHE Time Seen by Provider: 04/18/25 22:49 Arrival date/time: 04/18/25 22:38 RME / HPI RME / HPI Narrative: 04/18/25 22:38 This is a case of 19-year-old female with no medical history came in in the emergency room due to persistent headache abdominal pain and vaginal bleeding patient was here yesterday thorough workup was performed and was discharged with dysfunctional uterine bleeding due to worsening of the symptoms thus patient decided to sought consult here in the emergency room Dr. Hair?s Main ED Evaluation: 19 y/o female presents with worsening vaginal bleeding, abdominal pain, and nausea x 1 month. Bleeding has been ongoing since 03/06/2025. Also reports headache, weakness, and nausea with 3 bouts of vomiting. Vaginal bleeding is now heavier and reports passing clots. Patient was seen in ED yesterday and was advised to F/U with her [employer] SUPERVISOR, Dr. Harman Sinha , but was told by clinic that STRUCTURAL [employer] SH[employer] SUPERVISOR would not be available until Sunday, the day of her upcoming appointment. Patient was placed on OC by Dr. Sinha about 2 weeks ago, just prior to her vaginal bleeding worsening. Patient has no sick contacts. Exam: Abdominal exam is benign nonsurgical no guarding no rebound no rigidity mild tenderness suprapubic area excellent skin turgor Impression: Abdominal pain headache abnormal vaginal bleeding Related Data Previous Rx's ?Medication ?Instructions ?Recorded ibuprofen 600 mg tablet 600 mg PO Q8H PRN pain #30 t abs 05/29/24 ondansetron 4 mg disintegrating 4 mg PO Q8H PRN nausea and 10/21/24 tablet vomiting #20 tabs Allergies Allergy/AdvReac Type Severity Reaction Status Date / Time No Known Allergies Allergy Verified 04/18/25 22:39 Review of Systems Review of Systems Systems Reviewed: All systems reviewed, normal except as documented ED Exam Narrative Physical exam: GENERAL APPEARANCE: alert and oriented x 4, well-developed, well-nourished, no acute distress VITALS: All vitals were reviewed and the pulse ox is 97% on room air, which is normal according to my interpretation. HEENT: Normocephalic, atraumatic; pupils equal, round, reactive to light; EOMI; mucous membranes pink, moist; oropharynx clear NECK: Supple LUNGS: CTABL; no wheezes, no rales, no rhonchi HEART: Regular rate, regular rhythm; normal S1, S2; no murmurs ABDOMEN: non distended; normal BS; soft, TTP of B/L lower quadrants, no guarding, no rebound; no masses, no organomegaly, no hernia BACK: no CVA tenderness EXTREMITIES: atraumatic; no edema NEUROLOGIC: awake; alert and oriented x4; cranial nerves II-XII grossly intact; no focal sensory or motor deficits PSYCHIATRIC: appropriate mood and affect SKIN: warm, dry, normal color; no rashes Course Quality Measures none Orders Category Date Time Status Orthostatic Vitals NOW Care 04/19/25 00:44 Completed US transvaginal Stat Exams 04/18/25 23:35 Stop Req Hemoglobin and Hematocrit Stat Lab 04/18/25 23:44 Completed Vital Signs Vital signs: Vital Signs Temperature 97.5 F 04/18/25 23:25 Pulse Rate 67 04/18/25 23:25 Respiratory Rate 20 04/18/25 23:25 Blood Pressure 107/66 04/18/25 23:25 Pulse Oximetry (%) 98 04/18/25 23:25 Oxygen Delivery Method Room Air 04/18/25 23:25 Vaginal Bleeding MDM Narrative MDM Narrative: Patient is a 19-year-old female who presented to the emergency department with worsening vaginal bleeding after initiating OCPs. Patient was seen yesterday an d had a complete workup including pelvic ultrasound. Patient had a basically normal exam save for mild suprapubic tenderness. Because the patient had a complete workup yesterday I repeated H/H. This has not dropped significantly. I encouraged the patient to keep her appointment on Sunday morning with her primary university services program associate. I reassured her and gave her strict return instructions which she voiced understanding to and agreement Scribe Attestation: I, Aniyah Newell, am scribing for and in the presence of Dr. Hair. Provider Notation: Although this document has been carefully reviewed, there may still be some phonetic and other typographical errors. These errors are purely grammatical due to imperfections in the software program and should not be construed in any way to compromise the substance of the patient's medical care during this visit. Patient data External records reviewed:: [facility] previous records (Reviewed prior ED records from 04/17/25. Patient was seen for Abnormal uterine bleeding.) Clinical information provided by:: patient Social determinants that could affect healthcare access:: none Patient has the following chronic illnesses:: None reported How is presenting disease/condition affected by chronic disease/condition?: no chronic disease Evaluation data The following diagnostics were reviewed and interpreted by me:: lab results Lab and/or radiology exams considered but not ordered:: None Interpretation Summary: See MDM above Medications / Prescriptions Medications or Prescriptions considered but not ordered:: None Medication administrations:: See above if any Consultations Consultation(s) initiated? (list below): No Diagnosis Vaginal Bleeding Differential Diagnosis: dysfunctional uterine bleeding, menometrorrhagia, ectopic without intrauterine and vaginal bleeding Most likely diagnosis given after review of the tests above:: See clinical impression below Admission Indicated Admission indicated?: not indicated Explain why admission is indicated or not indicated:: Patient has no emergent abnormalities in their studies and can be managed on an outpatient basis. Admission Request Was there a request for admission?: No Disposition Plan Disposition Plan: Discharge Discharge Attestation Discharge Attestation: The patient and all family members were given an opportunity to ask questions and understood the discharge instructions. Discharge instructions specifically effects, indications for sooner follow up or return to the emergency department, and the expected course of current diagnosis. Patient condition: Stable Discharge Plan Plan Patient Disposition: HOME (Self Care) Discharge Disposition comment: Stable for discharge home Patient condition on transfer: Stable Prescriptions/Referrals Prescriptions/Med Rec: No Action ibuprofen 600 mg tablet 600 mg PO Q8H PRN (Reason: pain) Qty: 30 0RF ondansetron 4 mg tablet,disintegrating 4 mg PO Q8H PRN (Reason: nausea and vomiting) Qty: 20 0RF Referrals: Harman Yates CNM [Primary Care Provider, Obstetrics] - In 1 week Problem List Clinical Impression: Abnormal uterine bleeding Patient/Caregiver Discharge Instructions Discharge Activity: activity as tolerated Education Materials: ED Dysfunctional Uterine Bleeding Additional Instructions: Is very important that you follow-up with your primary university services program associate within the next several days. Please call her on Sunday morning and make an appointment. Please return to the emergency department if you have any worsening or any further medical problems and we will help you. Otherwise you should follow-up with your primary care doctor within the next several days Print Language: Estonian Stand Alone Forms: Loni Award Info., Patient Portal Info Letter
[2025-04-19 00:57] VITALS: BP 125/98; BP 138/88; PULSE 74; PULSE 75; PULSE 78
[2025-04-19 01:21] VITALS: BP 121/77; PULSE 78; RESP 12; O2SAT 97
== END 2025-04-19 01:24 | disposition home or self-care (01) ==
PROVIDERS: Nurse Practitioner Family; Emergency Provider Emergency Medicine
DX: N93.9 Abnormal uterine and vaginal bleeding, unspecified (principal)
CPT/HCPCS: 36415; 85014; 85018; 99282